=== PATIENT | female | born 1995 | race Caucasian/White ===

== ENCOUNTER 2021-04-15 21:29 | Emergency (ER) | payer MEDICAID, SELFPAY ==
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
[2021-04-15 23:33] VITALS: BP 119/68; PULSE 84; RESP 20; TEMP 36.3; O2SAT 100; BMI 21.2
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
== END 2021-04-16 02:07 | disposition home or self-care (01) ==
PROVIDERS: Emergency Provider Internal Medicine
DX: S09.90XA Unspecified injury of head, initial encounter (principal); X58.XXXA Exposure to other specified factors, initial encounter; Y93.9 Activity, unspecified; Y92.9 Unspecified place or not applicable; Y99.9 Unspecified external cause status
CPT/HCPCS: 70450; 99283; 99284